=== PATIENT | female | born 1980 | race Caucasian/White ===

== ENCOUNTER 2017-09-10 12:46 | Emergency (ER) | payer OTHER ==
[~2017-09-10] VITALS: Ht 160 cm; Wt 108.9 kg
[2017-09-10] MEDS ORDERED: TETANUS/DIPHTHERIA TOX ADULT 0.5 ML SYR IM ONE (13:00)
[2017-09-10] MEDS ORDERED: LIDOCAINE HCL 1% LOCAL INJ 20 ML VIAL ONE (14:22)
--- NOTE | 2017-09-10 14:26 | Diagnostic Imaging Report ---
PROCEDURE:X-RAY RIGHT FOOT, COMPLETE COMPARISON:None. INDICATIONS:FOOT PAIN, FOREIGN BODY FINDINGS: There are no fractures, dislocations, lytic or blastic lesions. The bones are well-mineralized. Scattered mild degenerative changes mid foot. Tiny dorsal and plantar calcaneal enthesophytes. A 1.6 cm long thin metallic density projects in the plantar soft tissues of the third metatarsal shaft on AP view and fourth metatarsal shaft on oblique view. CONCLUSION: Thin 1.6 cm long foreign body in the plantar soft tissues. No fractures. Dictated by: Kofi Guevara M.D. on 09/10/2017 at 14:27 Electronically approved by: Kofi Guevara M.D. on 09/10/2017 at 14:27
[2017-09-10] MEDS ORDERED: LIDOCAINE HCL 1% LOCAL INJ 20 ML VIAL INJ ONE (14:30)
--- NOTE | 2017-09-10 15:25 | Diagnostic Imaging Report ---
PROCEDURE:X-RAY RIGHT FOOT, COMPLETE COMPARISON:Foot radiograph 09/10/2017 at 1405 hrs. INDICATIONS:POST REMOVAL OF FOREIGN BODY IN RIGHT FOOT FINDINGS: See impression. CONCLUSION: Interval removal of the foreign body from the plantar soft tissues without retained fragment. No fractures. Dictated by: Kofi Guevara M.D. on 09/10/2017 at 15:26 Electronically approved by: Kofi Guevara M.D. on 09/10/2017 at 15:26
== END 2017-09-10 16:32 | disposition home or self-care (01) ==
LOC: ER 12:46
DX: S91.341A Puncture wound with foreign body, right foot, initial encounter (principal); W45.8XXA Other foreign body or object entering through skin, initial encounter; Y93.01 Activity, walking, marching and hiking; Z23 Encounter for immunization
CPT/HCPCS: 28192; 73630; 90471; 90714; 99284; J2001